=== PATIENT | male | born 1940 | race Caucasian/White ===

== ENCOUNTER 2017-09-05 06:11 | Emergency (ER) | payer MEDICARE ==
[~2017-09-05 06:11] MED LIST: ASPI81CH5; SIMV20
[2017-09-05 06:13] VITALS: BP 172/85; PULSE 85; RESP 16; TEMP 98.1; O2SAT 98
[2017-09-05] MEDS ORDERED: ZOCO20TA PO (06:30)
[2017-09-05] MEDS ORDERED: ASPI81CH37 CHEW (06:30)
[2017-09-05] MEDS ORDERED: LEVE500 PO (06:37)
[2017-09-05] MEDS ORDERED: MUPIROCIN 2% OINT 22 GM TUBE TOPICAL ONE (06:45)
--- NOTE | 2017-09-05 07:30 | PD ---
HPI Chief Complaint: Laceration/Skin Injury Time Seen by Provider: 06:40 Travel History International Travel<30 days: No Contact w/Intl Traveler<30days: No Traveled to known affect area: No History of Present Illness HPI The patient is a 77 year old male who presents to the [facility] emergency department with a history of tripping in the parking lot at the hospital prior to arrival. The patient reports that he has abrasions and skin tears involving the right hand and forearm. The patient denies having any bony tenderness. The patient denies hitting his head or losing consciousness. The patient denies being on any blood thinners. He denies having any neck pain, paresthesias, or weakness to his extremities. He was able to walk in for evaluation. Otherwise, on review of systems, the patient denies any recent fevers, cough, congestion, neck pain, chest pain, shortness of breath, abdominal pain, vomiting, diarrhea, urinary symptoms, or other neurologic symptoms. Tetanus reportedly was last updated in 2012. 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 Arthritis: Yes Blood Disorders: No Anxiety: No Depression: No Heart Rhythm Problems: No Cancer: No Cardiovascular Problems: Yes High Cholesterol: Yes Chemotherapy: No Chest Pain: No Congestive Heart Failure: No Diminished Hearing: No Endocrine: No Gastrointestinal Disorders: No Genitourinary: No Hypertension: No Immune Disorder: No Musculoskeletal: Yes Neurologic: Yes (SUBDURAL HEMATOMA) Psychiatric: No Reproductive: No Respiratory: No Myocardial Infarction: No Radiation Therapy: No Past Surgical History Narrative Surgical The patient's past surgical history is significant for subdural hematoma evacuation, right hand surgery. Abdominal Surgery: No AICD: No Arteriovenous Shunt: No Body Medical Devices: TITANIUM PLATE IN HEAD Cardiac Surgery: No Ear Surgery: No Endocrine Surgery: No Eye Surgery: No Genitourinary Surgery: No Gynecologic Surgery: No Insulin Pump: No Joint Replacement: No Neurologic Surgery: Yes (SUBDURAL HEMATOMA NOV 2006) Oral Surgery: No Pacemaker: No Thoracic Surgery: No Other Surgery: Yes (TIP R MIDDLE FINGER REMOVED) Social History Alcohol Use: No Tobacco Use: No Substance Use: No Allergies-Medications (Allergen,Severity, Reaction): Coded Allergies: No Known Allergies (Verified , 09/05/17) Reported Meds & Prescriptions Reported Meds & Active Scripts Active Reported Keppra (Levetiracetam) 500 Mg Tab 500 Mg PO BID Aspirin Low Dose (Aspirin) 81 Mg Chew 81 Mg CHEW DAILY Zocor (Simvastatin) 20 Mg Tab 20 Mg PO DAILY Review of Systems Except as stated in HPI: all other systems reviewed are Neg General / Constitutional: No: Fever Eyes: No: Visual changes HENT: No: Headaches Cardiovascular: No: Chest Pain or Discomfort Respiratory: No: Shortness of Breath Gastrointestinal: No: Abdominal Pain Genitourinary: No: Dysuria Musculoskeletal: No: Myalgias, Limited ROM, Edema, Pain Skin: Positive Other (abrasions and skin avulsion), No Rash Neurologic: No: Weakness, Focal Abnormalities, Change in Mentation, Slurred Speech, Sensory Disturbance Psychiatric: No: Depression Endocrine: No: Polydipsia Hematologic/Lymphatic: No: Easy Bruising Physical Exam Narrative General: The patient is a well-developed well-nourished male in no acute distress. Head and Neck exam: Head is normocephalic atraumatic. Eyes: EOMI, pupils are equal round and reactive to light. Nose: Midline septum with pink mucous membranes Mouth: Dentition unremarkable. Moist mucus membranes. Posterior oropharynx is not erythematous. No tonsillar hypertrophy. Uvula midline. Airway patent. Neck: No palpable lymphadenopathy. No nuchal rigidity. No thyromegaly. No spinous process tenderness to palpation. No step-off or crepitus. No erythema or ecchymosis. The patient has no pain with flexion and extension as well as turning of his head actively. Cardiovascular: Regular rate and rhythm without murmurs, gallops, or rubs. Lungs: Clear to auscultation bilaterally. No wheezes, rhonchi, or rales. Abdomen: Soft, without tenderness to palpation in all 4 quadrants of the abdomen. No guarding, rebound, or rigidity. Normal bowel sounds are audible. No tenderness on palpation of McBurney's point. Extremities: No clubbing, cyanosis, or edema. 2+ pulses in all 4 extremities. On examination of the area of interest, the right arm, the patient is noted to have a skin avulsion on the palm that is approximately half a centimeter in greatest dimension. There is no significant active bleeding. The patient also has an approximately 3 mm skin abrasion along the palm of the hand. The patient has a skin tear noted on the posterior aspect of the right forearm. The patient has no bony deformity. The patient has no crepitus or step-off. The patient has full range of motion of his extremities without pain. Back: No spinous process tenderness to palpation. No step-off or crepitus. No erythema or ecchymosis. No costovertebral angle tenderness to palpation. Neurologic Exam: Cranial nerves 2-12 were intact on exam. Strength is 5/5 in all 4 extremities. No sensory deficits noted. Skin Exam: No rash noted. Skin is warm and dry. Data Data Last Documented VS Vital Signs Date Time Temp Pulse Resp B/P (MAP) Pulse Ox O2 Delivery O2 Flow Rate FiO2 09/05/17 06:13 98.1 85 16 172/85 (114) 98 Orders Orders Mupirocin 2% Oint (Bactroban 2% Oint) (09/05/17 06:45) Wound Care (09/05/17 06:40) MDM Medical Decision Making Medical Screen Exam Complete: Yes Emergency Medical Condition: Yes Medical Record Reviewed: Yes Differential Diagnosis Abrasions, versus skin tears, versus laceration, versus contusion, versus fracture Narrative Course During the course of the patients emergency department visit, the patients history, examination, and differential diagnosis were reviewed with the patient. The patient had no bony tenderness on palpation. The patient has full range of motion of his extremities without pain. The patient had his wounds irrigated. The skin avulsion was debrided. The patient had antibiotic ointment applied. The patient's wounds were dressed. The patient is resting comfortably and feels better, is alert and in no distress. The patients examination findings were discussed with the patient. The repeat examination is unremarkable and benign. The history, exam, diagnostic testing, and current condition do not suggest any significant pathology to warrant further testing, continued ED treatment, admission, or surgical evaluation at this point. The vital signs have been stable. The patient does not have uncontrollable pain, intractable vomiting, or other significant symptoms. The patient's condition is stable and appropriate for discharge. The patient will pursue further outpatient evaluation with a primary care physician or other designated or consulting physician as indicated in the discharge instructions. The patient expressed understanding and was agreeable with this plan. Diagnosis Primary Impression: Skin avulsion Additional Impression: Skin tear of right forearm without complication Qualified Codes: S51.811A - Laceration without foreign body of right forearm, initial encounter Referrals: Primary Care Physician 3 days Patient Instructions: Abrasion (ED), General Instructions, Skin Avulsion (ED), Skin Tear (ED) Med/Other Pt SpecificInfo: No Change to Meds Disposition: 01 DISCHARGE HOME Condition: Stable Charleen Mcmanus MD Sep 05, 2017 07:30
== END 2017-09-05 07:58 | disposition home or self-care (01) ==
LOC: NEPC 06:11
DX: S51.811A Laceration without foreign body of right forearm, initial encounter (principal); W01.0XXA Fall on same level from slipping, tripping and stumbling without subsequent striking against object, initial encounter; Y92.481 Parking lot as the place of occurrence of the external cause
CPT/HCPCS: 99283